=== PATIENT | male | born 1960 | race Caucasian/White ===

== ENCOUNTER 2020-10-10 19:07 | Emergency (ER) | payer OTHER, SELFPAY ==
[2020-10-10] MEDS: Lidocaine HCl 2 % MPF 5 ML VIAL SUBCUT (19:38)
[2020-10-10 19:51] VITALS: BP 147/84; PULSE 68; RESP 16; O2SAT 96; BMI 26.6
--- NOTE | 2020-10-10 19:53 | ED.SKABFB ---
HPI - Skin/Abscess/Foreign Bdy General Chief complaint: Skin/Abscess/Foreign Body Stated complaint: Abscess on head Time Seen by Provider: 10/10/20 19:29 Source: patient and family Mode of arrival: ambulatory Limitations: no limitations History of Present Illness HPI narrative: 60-year-old male here with abscess to the left side of head. Patient tells me he noticed a bump there months ago but it has slowly been increasing and getting more swollen and red. No fevers or chills. Related Data Previous Rx's Medication Instructions Recorded doxycycline monohydrate 100 mg PO BID #14 cap 10/10/20 Allergies Allergy/AdvReac Type Severity Reaction Status Date / Time amoxicillin [AMOXICILLIN] Allergy Severe RASH Verified 10/10/20 19:37 lactose [LACTOSE] Allergy Intermediate ABDOMINAL Verified 10/10/20 19:37 PAIN, DIARRHEA Review of Systems Review of Systems: Yes all other systems are reviewed and are negative Constitutional: Constitutional: Reports no additional constitutional complaints, Denies body ache(s), Denies chills, Denies fever(s), Denies headache(s) and Denies weakness Eyes: Eyes: Reports no additional eye complaints and Denies change in vision ENT: Reports system reviewed and no additional complaints, except as documented, Denies dizziness, Denies headache(s), Denies nasal congestion, Denies nasal discharge and Denies neck pain Cardiovascular: Cardiovascular: Reports no additional cardiovascular complaints, Denies chest pain, Denies leg edema and Denies dyspnea Respiratory: Respiratory: Reports no additional respiratory complaints, Denies cough and Denies dyspnea Gastrointestinal: Gastrointestinal: Reports no additional gastrointestinal complaints, Denies abdominal pain, Denies diarrhea, Denies nausea and Denies vomiting Genitourinary: Genitourinary: Denies urinary incontinence Musculoskeletal: Musculoskeletal: Reports no additional musculoskeletal complaints, Denies back pain, Denies arthralgias, Denies joint swelling, Denies neck pain, Denies numbness and Denies tingling Integumentary/Breasts: Skin/Breast: Reports system reviewed and no additional complaints, except as docu, Reports swelling, Reports erythema and Denies rash Neurologic: Reports system reviewed and no additional complaints, except as documented, Denies Abnormal speech present, Denies dizziness, Denies headache(s), Denies numbness, Denies tingling and Denies weakness [facility] Past Medical History Attestation statement: The following information was validated with the patient. Source: old records reviewed and nursing notes reviewed Medical History (Updated 10/10/20 @ 19:55 by Saskia Juarez) Diabetes Heart attack High cholesterol HTN (hypertension) Social History Social History Advance Directives: No Advance Directives Information Provided: Yes Physical Exam Vital Signs: Vital Signs: Last Vital Signs Pulse 68 10/10/20 19:51 Resp 16 10/10/20 19:51 BP 147/84 H 10/10/20 19:51 Pulse Ox 96 10/10/20 19:51 Body Mass Index 26.6 Const: General: cooperative, healthy appearing, comfortable and no acute distress Orientation/consciousness: patient oriented x3 Limitations: no limitations HENMT: Head: Yes normal to inspection Head images: 1. Quarter-sized raised, warm, red area with some purulent drainage coming from the site Ears: hearing grossly normal bilaterally General nose exam: Normal external nose present Face and sinus: Yes normal facial exam Mouth: Normal oral and palatal mucosa present Throat: Yes posterior oropharynx normal Eyes: General: appearance normal, both eyes and all related structures Pupils: Equal, round and reactive pupils present Neck: Neck: Yes normal visual inspection Chest: Chest palpation & inspection: normal inspection of the chest Resp: Effort & Inspection: normal respiratory effort Auscultation: clear to auscultation bilaterally Cardio: Rate: regular rate Rhythm: regular rhythm Peripheral pulses: Peripheral pulses 2+ throughout GI: Inspection: Yes normal to inspection Palpation (GI): Soft to palpation and nontender Auscultation: normal bowel sounds Back/Spine/Pelvis: Thoracic/Lumbar Spine: thoracic and lumbar spine normal to inspection Skin: General skin exam: no rashes or lesions noted Neuro: General: patient oriented x3, no focal motor deficits and normal sensation to monofilament Cranial nerves: Yes Equal, round and reactive pupils present Cognition (Neuro): normal cognition Speech: No Abnormal speech present Gait exam (Neuro): Normal gait present Motor exam (neuro): 5/5 motor strength present throughout Extrem: General: Yes normal to inspection Course Course Course Narrative: Abscess to left scalp that is warm, red and draining and appears infected. Attempted I and D but is a sebaceous cyst so did not get a lot of drainage. Dressing placed. Antibiotics will be started. Will refer to surgery for follow-up Procedures Abscess I/D Site: scalp Side (if applicable): left Local Anesthetic: lidocaine 2% Amount of anesthesia used (mL): 3 Technique: incised with blade Amount of fluid expressed (mL): 2 Discharge Plan Discharge Clinical Impression: Sebaceous cyst Patient Disposition: Home, Self-Care Instructions: Cyst (ED) Prescriptions: New doxycycline monohydrate 100 mg capsule 100 mg PO BID Qty: 14 RF: 0 Referrals: Joselito Schaffer MD [Physician] - 2 days Stand Alone Forms: Work/School Release Interventions: ED Discharge Assessment Last Done: 10/10/20 20:10 Discharge Date/Time: 10/10/20 20:10
== END 2020-10-10 20:10 | disposition home or self-care (01) ==
LOC: HO.ED 19:59
PROVIDERS: Emergency Provider Internal Medicine; PCP Family Medicine
DX: L72.3 Sebaceous cyst (principal); I10 Essential (primary) hypertension; Z79.899 Other long term (current) drug therapy
CPT/HCPCS: 10060; 99283

== ENCOUNTER → 2020-10-19 15:21 | Outpatient (BNVA) | payer OTHER, SELFPAY | PROVIDERS: PCP Family Medicine; Visit Provider Surgery ==

== ENCOUNTER 2021-04-24 09:21 | Emergency (ER) | payer OTHER, SELFPAY ==
--- NOTE | ~2021-04-24 | XR_ITS ---
EXAMINATION: 1. RADIOGRAPHS RIGHT SHOULDER 2. RADIOGRAPHS RIGHT ELBOW 3. RADIOGRAPHS RIGHT FOOT CLINICAL INFORMATION: Diffuse pain after fall COMPARISON: None TECHNIQUE: 4 views of the right shoulder, 3 views of the right elbow and 3 views of the right foot were obtained. FINDINGS: Right shoulder: Visualized portion of the proximal right humerus demonstrate no fracture. Humeral head is mildly high riding compared with the glenoid fossa, however, no dislocation is identified. Small osteophyte off the inferomedial humeral head. Mild hypertrophic changes of the acromioclavicular joint. Visualized right-sided ribs and lung parenchyma are unremarkable. Right elbow: No dislocation. No joint effusion. Subtle cortical irregularity involving the medial epicondyle of the distal humerus, nonspecific. Mild soft tissue swelling overlying the olecranon process. Prominent enthesophytes off the olecranon process. Right foot: Bones of the midfoot are well aligned. No tarsal fracture. No metatarsal fracture. Subtle erosions noted within the fifth metatarsal head. Subtle linear opacity along the medial base of the first proximal phalanx is most consistent with a nondisplaced fracture. There is mild overlying soft tissue swelling. Small posterior calcaneal enthesophytes. No gross ankle joint effusion. XR/XR shoulder RT 1V IMPRESSION: 1. Nondisplaced fracture through the base of the proximal first phalanx of the right foot. 2. Mild to moderate degenerative changes of the right shoulder without fracture or dislocation. Right humeral head is high riding in relation to the glenoid fossa suggesting possible underlying ligamentous injury. This may be further evaluated with MRI imaging as deemed clinically appropriate. 3. Subtle cortical irregularity involving the medial epicondyle of the distal humerus. I suspect this represents an old healed injury, however, correlation with point tenderness is recommended. Further imaging can be obtained as deemed clinically appropriate.
--- NOTE | ~2021-04-24 | XR_ITS ---
EXAMINATION: 1. RADIOGRAPHS RIGHT SHOULDER 2. RADIOGRAPHS RIGHT ELBOW 3. RADIOGRAPHS RIGHT FOOT CLINICAL INFORMATION: Diffuse pain after fall COMPARISON: None TECHNIQUE: 4 views of the right shoulder, 3 views of the right elbow and 3 views of the right foot were obtained. FINDINGS: Right shoulder: Visualized portion of the proximal right humerus demonstrate no fracture. Humeral head is mildly high riding compared with the glenoid fossa, however, no dislocation is identified. Small osteophyte off the inferomedial humeral head. Mild hypertrophic changes of the acromioclavicular joint. Visualized right-sided ribs and lung parenchyma are unremarkable. Right elbow: No dislocation. No joint effusion. Subtle cortical irregularity involving the medial epicondyle of the distal humerus, nonspecific. Mild soft tissue swelling overlying the olecranon process. Prominent enthesophytes off the olecranon process. Right foot: Bones of the midfoot are well aligned. No tarsal fracture. No metatarsal fracture. Subtle erosions noted within the fifth metatarsal head. Subtle linear opacity along the medial base of the first proximal phalanx is most consistent with a nondisplaced fracture. There is mild overlying soft tissue swelling. Small posterior calcaneal enthesophytes. No gross ankle joint effusion. XR/XR elbow RT 2V IMPRESSION: 1. Nondisplaced fracture through the base of the proximal first phalanx of the right foot. 2. Mild to moderate degenerative changes of the right shoulder without fracture or dislocation. Right humeral head is high riding in relation to the glenoid fossa suggesting possible underlying ligamentous injury. This may be further evaluated with MRI imaging as deemed clinically appropriate. 3. Subtle cortical irregularity involving the medial epicondyle of the distal humerus. I suspect this represents an old healed injury, however, correlation with point tenderness is recommended. Further imaging can be obtained as deemed clinically appropriate.
[2021-04-24 09:46] VITALS: BP 115/76; PULSE 80; RESP 20; O2SAT 96; BMI 27.3
--- NOTE | 2021-04-24 10:12 | ED.FALL ---
HPI - Fall General Chief Complaint: Fall Stated Complaint: Fall Time Seen by Provider: 04/24/21 10:11 Source: patient and family Mode of arrival: ambulatory Limitations: no limitations History of Present Illness HPI Narrative: 61-year-old male came in for evaluation after a mechanical fall. Patient was going down the stairs he missed step of stair fell down about 8-10 steps of stairs, patient landed on his right side twisting his right foot and ankle, and injuring his right elbow and right shoulder, patient declined any head injury, no LOC, no headache, no nausea, no vomiting. No chest pain, no shortness of breath, no abdominal pain, no hip or pelvic pain. Patient's only pain is confined to the right foot, right elbow, right shoulder. Related Data Home Medications Medication Instructions Recorded Confirmed aspirin 325 mg tablet 325 mg PO DAILY 10/19/20 10/19/20 cyclobenzaprine 10 mg tablet 10 mg PO BEDTIME 10/19/20 10/19/20 dapagliflozin 10 mg-metformin ER 1 tab PO DAILY 10/19/20 10/19/20 1,000 mg tablet,extended release 24hr (Xigduo XR) naproxen 500 mg tablet 500 mg PO BID 10/19/20 10/19/20 rosuvastatin 20 mg tablet 20 mg PO DAILY 10/19/20 10/19/20 tamsulosin 0.4 mg capsule 0.4 mg PO DAILY 10/19/20 10/19/20 valsartan 160 1 tab PO DAILY 10/19/20 10/19/20 mg-hydrochlorothiazide 12.5 mg tablet Previous Rx's Medication Instructions Recorded doxycycline monohydrate 100 mg 100 mg PO BID #14 cap 10/10/20 capsule Allergies Allergy/AdvReac Type Severity Reaction Status Date / Time amoxicillin [AMOXICILLIN] Allergy Severe RASH Verified 10/19/20 15:27 lactose [LACTOSE] Allergy Intermediate ABDOMINAL Verified 10/19/20 15:27 PAIN, DIARRHEA Review of Systems Review of Systems: All other systems are reviewed and are negative Constitutional: Reports as per HPI and Reports no additional constitutional complaints Eyes: Reports as per HPI and Reports no additional eye complaints Reports system reviewed and no additional complaints, except as documented Cardiovascular: Reports as per HPI and Reports no additional cardiovascular complaints Respiratory: Reports as per HPI and Reports no additional respiratory complaints Gastrointestinal: Reports as per HPI and Reports no additional gastrointestinal complaints Genitourinary: Reports no additional female genitourinary complaints Musculoskeletal: Reports no additional musculoskeletal complaints Skin/Breast: Reports system reviewed and no additional complaints, except as docu Psychiatric: Reports no additional psychiatric complaints Endocrine: Reports no additional endocrine complaints Hematologic/Lymphatic: Reports no additional hematologic/lymphatic complaints Allergic/Immunologic: Reports no additional allergic/immunologic complaints Reports system reviewed and no additional complaints, except as documented and Reports Abnormal speech present [facility] Past Medical History Medical History Diabetes Heart attack High cholesterol HTN (hypertension) Scalp cyst Surgical History History of rotator cuff surgery Family History Family History Other Brain cancer Breast cancer Colon cancer Social History Social History Alcohol intake: current Alcohol intake frequency: holidays/special occasions only Advance Directives: No Advance Directives Information Provided: Yes Physical Exam Vital Signs: Vital Signs: Last Vital Signs Temp 97.9 F 04/24/21 10:47 Pulse 80 04/24/21 09:46 Resp 20 04/24/21 09:46 BP 115/76 04/24/21 09:46 Pulse Ox 96 04/24/21 09:46 Body Mass Index 27.3 Vital signs have been reviewed as appeared to be correct. Blood pressure normal. Heart rate normal. Respiration rate normal. Temperature normal. Oxygen saturation normal. Appearance: Alert. Oriented X3. No acute distress. Head: Normal external exam. Normocephalic. Atraumatic. No Figueroa signs noted. No raccoon eyes noted Eyes: PERRLA. EOMI. Conjunctiva and sclera normal. Eyelids normal. ENT: TM's Normal. Pharynx normal. Uvula midline. Moist mucous membranes. No trismus noted. No drooling noted. No muffled voice noted. Neck: Normal inspection. Neck supple. FROM. No adenopathy. Thyroid Normal. No meningeal signs. No neck mass noted. CVS: Normal heart rate and rhythm. Heart sound normal. No murmurs noted. Pulses normal throughout. Respiratory: No respiratory distress. Painless inspiration. Breath sounds normal. No wheezes/rales/rhonchi noted. Chest nontender. No accessory muscle usage noted or decreased air movement noted. Abdomen: Soft and nontender. Bowel sounds normal in all 4 quadrants. No distention noted. No organomegaly noted. No visible injury noted. Back: No CVA tenderness. Full range of motion noted. Skin: Skin warm and dry. Normal skin color. Normal skin turgor. No rashes/lesions/lacerations noted. Extremities: Right shoulders: No deformity, no step-off, full range of motion. Right elbow: No deformity, no step-off, no hematoma, full range of motion. Right shoulder: No deformity, no step-off, no hematoma, full range of motion. Neuro: Oriented X 3. Cranial nerve exam: II-XII are grossly intact No motor deficit. No sensory deficit. Reflexes normal. Course Course Course Narrative: Assessment and plan 61 years old male came in after he fell, x-rays and physical exam showed no acute fracture, no LOC or head injury. Patient is not taking anticoagulation MDM - Fall Imaging Data Right foot x-ray.: Radiologist's impression: Nondisplaced fracture through the base of the proximal first phalanx of the right foot. Right elbow x-ray: Radiologist's impression: 3. ? Subtle cortical irregularity involving the medial epicondyle of the distal humerus. I suspect this represents an old healed injury, however, correlation with point tenderness is recommended. Further imaging can be obtained as deemed clinically appropriate. Right shoulder x-ray: Radiologist's impression: Mild to moderate degenerative changes of the right shoulder without fracture or dislocation. Right humeral head is high riding in relation to the glenoid fossa suggesting possible underlying ligamentous injury. This may be further evaluated with MRI imaging as deemed clinically appropriate. Discharge Plan Discharge Clinical Impression: Accident due to mechanical fall without injury, Contusion Fracture, phalanx, foot Qualifiers: Encounter type: initial encounter Toe: great toe Fracture type: closed Phalanx: proximal Fracture alignment: nondisplaced Elbow fracture Qualifiers: Encounter type: initial encounter Fracture type: closed Laterality: right Qualified Code(s): S42.401A - Unspecified fracture of lower end of right humerus, initial encounter for closed fracture Patient Disposition: Home, Self-Care Instructions: Contusion in Adults (ED) Prescriptions: No Action doxycycline monohydrate 100 mg capsule 100 mg PO BID Qty: 14 RF: 0 aspirin 325 mg tablet 325 mg PO DAILY RF: 0 Xigduo XR 10-1,000 mg tablet, IR - ER, biphasic 24hr 1 tab PO DAILY RF: 0 valsartan-hydrochlorothiazide 160-12.5 mg tablet 1 tab PO DAILY RF: 0 rosuvastatin 20 mg tablet 20 mg PO DAILY RF: 0 tamsulosin 0.4 mg capsule 0.4 mg PO DAILY RF: 0 cyclobenzaprine 10 mg tablet 10 mg PO BEDTIME RF: 0 naproxen 500 mg tablet 500 mg PO BID RF: 0 Referrals: Physician,Ysabel [Primary Care Provider] - 2 days Jermaine Martin MD [Physician] - 2 days
[2021-04-24 10:47] VITALS: TEMP 36.6
== END 2021-04-24 11:42 | disposition home or self-care (01) ==
PROVIDERS: Emergency Provider Emergency Medicine
DX: S42.401A Unspecified fracture of lower end of right humerus, initial encounter for closed fracture (principal); S40.011A Contusion of right shoulder, initial encounter; M79.601 Pain in right arm; M79.671 Pain in right foot; W10.9XXA Fall (on) (from) unspecified stairs and steps, initial encounter; Y93.9 Activity, unspecified; Y92.9 Unspecified place or not applicable; Y99.9 Unspecified external cause status; Z79.899 Other long term (current) drug therapy
CPT/HCPCS: 73020; 73070; 73620; 99284

== ENCOUNTER 2021-05-19 07:17 | Outpatient (REF) | payer OTHER, SELFPAY ==
--- NOTE | ~2021-05-19 | XR_ITS ---
EXAMINATION: XR FOOT, RIGHT CLINICAL INFORMATION: Pain in the foot COMPARISON: 04/24/2021 TECHNIQUE: AP, lateral, and oblique views of the right foot. FINDINGS: There is redemonstration of intra-articular fracture at the medial base of the first digit proximal phalanx. Alignment is unchanged. Fracture line remains evident. No new fractures. Joint spaces are maintained. The soft tissues appear unremarkable. XR/XR foot RT min 3V IMPRESSION: Unchanged appearance of the nondisplaced intra-articular fracture at the base of the first digit proximal phalanx.
--- NOTE | ~2021-05-19 | XR_ITS ---
EXAMINATION: XR SHOULDER, RIGHT CLINICAL INFORMATION: Pain COMPARISON: 04/24/2021 TECHNIQUE: Three views of the right shoulder. FINDINGS: There is no acute fracture or subluxation. Superior positioning of the humeral head in relation to the glenoid with narrowing of the subacromial space. Marginal osteophytes are seen at the glenohumeral joint. Mild hypertrophic degenerative change of the acromioclavicular joint. The visualized lung is clear. The visualized ribs are intact. XR/XR shoulder RT min 2V IMPRESSION: Evidence of chronic rotator cuff disease. Mild additional degenerative change at the glenohumeral and acromioclavicular joints.
== END 2021-05-19 07:18 | disposition home or self-care (01) ==
LOC: HO.HOSX 07:17
PROVIDERS: Visit Provider Physician Assistant
DX: S42.441A Displaced fracture (avulsion) of medial epicondyle of right humerus, initial encounter for closed fracture (principal); S92.411A Displaced fracture of proximal phalanx of right great toe, initial encounter for closed fracture; W10.9XXA Fall (on) (from) unspecified stairs and steps, initial encounter; Y93.01 Activity, walking, marching and hiking; Y92.9 Unspecified place or not applicable; Y99.8 Other external cause status; M75.101 Unspecified rotator cuff tear or rupture of right shoulder, not specified as traumatic; M12.811 Other specific arthropathies, not elsewhere classified, right shoulder; E11.9 Type 2 diabetes mellitus without complications; E78.00 Pure hypercholesterolemia, unspecified; I10 Essential (primary) hypertension; Z88.0 Allergy status to penicillin; Z88.1 Allergy status to other antibiotic agents; Z91.011 Allergy to milk products
CPT/HCPCS: 73030; 73630

== ENCOUNTER 2023-05-27 16:11 | Emergency (ER) | payer OTHER, SELFPAY ==
[2023-05-27 16:20] VITALS: BP 143/84; PULSE 71; RESP 18; TEMP 36.8; O2SAT 96; BMI 26.6
--- NOTE | 2023-05-27 16:24 | ED_ITS ---
HPI - Extremity Problem General Chief complaint: Extremity Injury, Upper Stated complaint: numb arm Time Seen by Provider: 05/27/23 18:18 History of Present Illness HPI Narrative: Pt is a 63yo male who presents to the ED with right arm numbness. He states it started on his drive home from work (approx. 15:00) but is a little better now. Pt reports associated pain in his shoulder and elbow in the right side. He notes limited ROM of the right shoulder. He notes that last night he experienced numbness in his fingers bilaterally but it went away after massaging it. Pt notes a hx of arthritis. Related Data Home Medications Medication Instructions Recorded Confirmed aspirin 325 mg tablet 325 mg PO DAILY 10/19/20 10/19/20 cyclobenzaprine 10 mg tablet 10 mg PO BEDTIME 10/19/20 10/19/20 dapagliflozin propaned 10 1 tab PO DAILY 10/19/20 10/19/20 mg-metformin ER 1,000 mg tablet,ext rel 24hr (Xigduo XR) naproxen 500 mg tablet 500 mg PO BID 10/19/20 10/19/20 rosuvastatin 20 mg tablet 20 mg PO DAILY 10/19/20 10/19/20 tamsulosin 0.4 mg capsule 0.4 mg PO DAILY 10/19/20 10/19/20 valsartan 160 1 tab PO DAILY 10/19/20 10/19/20 mg-hydrochlorothiazide 12.5 mg tablet Previous Rx's Medication Instructions Recorded doxycycline monohydrate 100 mg 100 mg PO BID #14 caps 10/10/20 capsule ibuprofen 600 mg tablet 600 mg PO Q6H PRN pain #20 tabs 05/27/23 Allergies Allergy/AdvReac Type Severity Reaction Status Date / Time amoxicillin [AMOXICILLIN] Allergy Severe RASH Verified 05/27/23 16:24 lactose [LACTOSE] Allergy Intermediate ABDOMINAL Verified 05/27/23 16:24 PAIN, DIARRHEA Review of Systems Constitutional: Constitutional: Denies headache(s) Eyes: Eyes: Denies change in vision ENT: Denies headache(s) Cardiovascular: Cardiovascular: Denies chest pain and Denies dyspnea Respiratory: Respiratory: Denies dyspnea Gastrointestinal: Gastrointestinal: Denies abdominal pain Musculoskeletal: Musculoskeletal: Reports limited range of motion (limited shoulder movement), Reports muscle cramps (right arm muscles) and Reports numbness Neurologic: Denies headache(s), Reports numbness and Denies Sensory deficit (Neuro) [facility] Past Medical History Medical History Diabetes Heart attack High cholesterol HTN (hypertension) Scalp cyst Surgical History History of rotator cuff surgery Family History Family History Other Brain cancer Breast cancer Colon cancer Social History Social History Alcohol intake: current Alcohol intake frequency: holidays/special occasions only Advance Directives: No Advance Directives Information Provided: No Physical Exam Vital Signs: Vital Signs: Last Vital Signs Temp 98.3 F 05/27/23 16:20 Pulse 71 05/27/23 16:20 Resp 18 05/27/23 16:20 BP 143/84 H 05/27/23 16:20 Pulse Ox 96 05/27/23 16:20 O2 Del Method Room Air 05/27/23 16:20 BMI result Body Mass Index 26.6 Const: General: cooperative, comfortable, no acute distress, alert, awake and Physically active Orientation/consciousness: patient oriented x3 HEENT: Head: Yes normal to inspection Ears: hearing grossly normal bilaterally General nose exam: Normal external nose present Eyes: General: appearance normal, both eyes and all related structures Resp: Effort & Inspection: normal respiratory effort and able to speak in complete sentences Neuro: General: patient oriented x3 Cranial nerves: Yes CN's II-XII intact bilaterally Motor exam (neuro): 5/5 motor strength present throughout Sensory Exam: No Sensory deficit (Neuro) Extrem: Right upper extremity: normal to inspection (no deformities), full ROM, shoulder/upper arm Details: tenderness (vague tenderness to palpation of the entire shoulder) and normal ROM; no deformity and Extremity exam: right hand (nodules of the DIP on all fingers); no edema and joint enlargement noted Course Course Course Narrative: Patient complains of pain and tingling going down to right hand from neck 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 He is tender on exam. His exam is consistent with arthritis 1st neuropathy. He does have good range of motion right shoulder. He had no concerning signs or symptoms such as chest pain, back pain, shortness of breath, palpitations. We will treat his pain and he will follow-up with his PCP Differential Diagnosis Differential Diagnoses: The differential diagnosis associated with the presentation includes (osteoarthritis, diabetic neuropathy, pinched nerve, biceps tendonitis, RTC tear) Discharge Plan Discharge Clinical Impression: Acute pain of right shoulder Patient Disposition: Home, Self-Care Instructions: Arthralgia (ED) Additional Instructions: Your pain is likely related to previous rotator cuff disease. You had an x-ray here 2 years ago that showed a arthritis of the right shoulder Use ibuprofen/Tylenol for pain Follow-up with your primary doctor Prescriptions: New ibuprofen 600 mg tablet 600 mg PO Q6H PRN (Reason: pain) Qty: 20 0RF No Action doxycycline monohydrate 100 mg capsule 100 mg PO BID Qty: 14 0RF aspirin 325 mg tablet 325 mg PO DAILY Xigduo XR 10-1,000 mg tablet, IR - ER, biphasic 24hr 1 tab PO DAILY valsartan-hydrochlorothiazide 160-12.5 mg tablet 1 tab PO DAILY rosuvastatin 20 mg tablet 20 mg PO DAILY tamsulosin 0.4 mg capsule 0.4 mg PO DAILY cyclobenzaprine 10 mg tablet 10 mg PO BEDTIME naproxen 500 mg tablet 500 mg PO BID Stand Alone Forms: Work/School Release
== END 2023-05-27 19:34 | disposition home or self-care (01) ==
PROVIDERS: Emergency Provider Emergency Medicine
DX: M25.511 Pain in right shoulder (principal); E11.9 Type 2 diabetes mellitus without complications; I10 Essential (primary) hypertension
CPT/HCPCS: 99282; 99283